=== PATIENT | female | born 1985 | race African-American/Black ===

== ENCOUNTER 2018-10-06 17:12 | Emergency (ER) | payer SELFPAY ==
[~2018-10-06] VITALS: Ht 175.3 cm; Wt 68.9 kg
--- NOTE | 2018-10-06 17:25 | NUR ---
ED Nurse Note: Patient walked into ED c/o dry coughing for 1 week. patient reports she went to urgent care 1 week ago and got prescription for cough syrup and steroid, reports that nothing is helping.
[2018-10-06 17:35] VITALS: BP 121/72
--- NOTE | 2018-10-06 17:42 | Emergency Room Report ---
History of Present Illness General Chief Complaint: Upper Respiratory Illness Source: Patient Present Illness HPI 33-year-old female with no significant past medical history here complaining of 4 weeks of dry cough and sore throat. Patient reports that she went to urgent care a week ago and was diagnosed with a viral upper respiratory infection and given Phenergan for cough. Patient also reports of wheezing however denies shortness of breath and chest pain. Denies fever chills, ear pain, congestion. Patient also complains of white patchy rating over her tongue and reports that she has had a history of oral thrush in the past. Patient denies tobacco smoking or drug use. Denies palpitation, abdominal pain, nausea vomiting. Allergies: Coded Allergies: No Known Allergies (Unverified , 10/06/18) Patient History Past Medical History: see triage record Past Surgical History: unable to obtain Pertinent Family History: unable to obtain Last Menstrual Period: 10/06/2018 Now: No Immunizations: UTD Reviewed Nursing Documentation: PMH: Agreed; PSxH: Agreed Nursing Documentation-PMH Past Medical History: No Stated History Review of Systems All Other Systems: negative except mentioned in HPI Physical Exam Vital Signs Date Time Temp Pulse Resp B/P (MAP) Pulse Ox O2 Delivery O2 Flow Rate FiO2 10/06/18 17:20 98.1 66 16 117/77 (90) 97 Room Air Sp02 EP Interpretation: reviewed, normal General Appearance: normal inspection, well appearing, no apparent distress, alert, GCS 15 Head: normocephalic, atraumatic Eyes: bilateral eye normal inspection, bilateral eye PERRL ENT: hearing grossly normal, no angioedema, TMs + canals normal, pharyngeal erythema Neck: normal inspection, full range of motion, supple, no meningismus Respiratory: chest non-tender, lungs clear, normal breath sounds, no rhonchi, no respiratory distress, no retraction, no wheezing Cardiovascular #1: normal inspection, normal peripheral pulses, no edema, no gallop, no murmur Gastrointestinal: normal inspection, non tender, soft Rectal: deferred Genitourinary: no CVA tenderness Musculoskeletal: normal inspection, back normal Neurologic: normal inspection, alert, oriented x3, responsive Psychiatric: normal inspection, judgement/insight normal Skin: normal inspection, normal color, no rash, warm/dry Lymphatic: normal inspection, no adenopathy Medical Decision Making PA Attestation All my diagnosis and treatment plans were reviewed ad discussed with my supervising physician Dr. Gonzalez Diagnostic Impression: Primary Impression: Bronchitis Additional Impression: Oral thrush ER Course 33-year-old female with no significant past medical history here complaining of 4 weeks of dry cough and sore throat. Patient reports that she went to urgent care a week ago and was diagnosed with a viral upper respiratory infection and given Phenergan for cough. Patient also reports of wheezing however denies shortness of breath and chest pain. Denies fever chills, ear pain, congestion. Patient also complains of white patchy rating over her tongue and reports that she has had a history of oral thrush in the past. Patient denies tobacco smoking or drug use. Denies palpitation, abdominal pain, nausea vomiting. Ddx considered but are not limited to: bronchitis, PNA, URI viral, bacterial brochitis Vital signs: are WNL, pt. is afebrile H&PE are most consistent with: bronchitis, oral thrush ORDERS: azithromycin, Phenergan, albuterol, nystatin ED INTERVENTIONS: None required at this time. DISCHARGE: At this time pt. is stable for d/c to home. Will provide printed patient care instructions, and any necessary prescriptions. Care plan and follow up instructions have been discussed with the patient prior to discharge. At this point no imaging is needed as long clear patient to follow-up with a primary care provider Last Vital Signs Date Time Temp Pulse Resp B/P (MAP) Pulse Ox O2 Delivery O2 Flow Rate FiO2 10/06/18 17:35 98.1 69 15 121/72 98 Room Air Disposition: HOME, SELF-CARE Condition: Stable Scripts Nystatin* (NYSTATIN*) 100,000 Unit/1 Ml Oral.susp 5 ML ORAL FOUR TIMES A DAY, #100 ML Swish in the mouth and retain for as long as possible (several minutes) before swallowing Prov: ChemamogAdalberto trinh PA 10/06/18 Albuterol Sulfate* (PROAIR HFA*) 8.5 Gm Hfa.aer.ad 2 PUFFS INH Q6H, #8.5 GM 0 Refills Prov: IndiraelimogAdalberto trinh PA 10/06/18 Promethazine Hcl (PROMETHAZINE HCL*) 6.25 Mg/5 Ml Syrup 5 ML ORAL Q6H, #120 ML 0 Refills Prov: Adalberto Rios 10/06/18 Azithromycin* (ZITHROMAX*) 250 Mg Tablet 250 MG ORAL DAILY, #6 TAB 0 Refills Take two tables once daily for 1 day, then one tablet once daily for 4 days. Prov: Adalberto Rios 10/06/18 Referrals: NOT CHOSEN IPA/MD,REFERRING (PCP) Patient Instructions: Acute Bronchitis, [id number], Stomatitis, [id number] Additional Instructions: Take medication as directed follow-up with a primary care provider. Adalberto Rios Oct 06, 2018 17:42
[2018-10-06] MEDS ORDERED: ZITHROMAX250 MG ORAL (17:43)
[2018-10-06] MEDS ORDERED: PROAIR HFA8.5 GM INH (17:43)
[2018-10-06] MEDS ORDERED: PROMETHAZI6.25 MG/1 ORAL (17:43)
[2018-10-06] MEDS ORDERED: NYSTATIN100000 UN1 ORAL (17:55)
[2018-10-06 18:01] VITALS: BP 121/72
--- NOTE | 2018-10-06 18:02 | NUR ---
ER DISCHARGE NOTE: Patient is cleared to be discharged per NIKOS GROVER, pt is aox4, on room air, with stable vital signs. pt was given dc and prescription instructions, pt was able to verbalize understanding, pt id band removed without complications. pt is able to ambulate with steady gait. pt took all belongings.
== END 2018-10-06 18:01 | disposition home or self-care (01) ==
LOC: EMR 17:21
DX: J40 Bronchitis, not specified as acute or chronic (principal); B37.0 Candidal stomatitis
CPT/HCPCS: 99283